=== PATIENT | male | born 2000 | race Caucasian/White ===

== ENCOUNTER 2021-10-14 10:00 | Emergency (ER) | payer OTHER ==
[~2021-10-14] VITALS: Ht 195.6 cm; Wt 86.2 kg
--- OUTSIDE RECORDS SUMMARY | 2021-10-14 10:04 | XMS ---
PreManage Notification: FERNANDO MONTANO [employer] Events No recent Security Events currently on file CRITERIA MET - ED - Positive COVID-19 Lab Result - [facility] PROVIDERS There are no care providers on record at this time. Jing has no Care Guidelines for this patient. Anh VISIT COUNT (12 MO.) 1 GERALD Munoz TOTAL 1 NOTE: Visits indicate total known visits. ED/C VISIT TRACKING (12 MO.) 10/14/2021 10:01 [facility] TYPE: Emergency COMPLAINT: - R ANKLE INJURY INPATIENT VISIT TRACKING (12 MO.) No inpatient visits to display in this time frame [email or web address]
== END 2021-10-14 11:48 | disposition home or self-care (01) ==
LOC: ED 10:00
DX: S93.401A Sprain of unspecified ligament of right ankle, initial encounter (principal); X50.1XXA Overexertion from prolonged static or awkward postures, initial encounter; Y93.67 Activity, basketball
CPT/HCPCS: 73610; 99283-25